=== PATIENT | male | born 1970 | race Hispanic/Latino ===

== ENCOUNTER 2024-11-25 10:37 | Emergency (ER) | payer OTHER ==
[~2024-11-25] VITALS: Ht 182.9 cm; Wt 113.4 kg
[2024-11-25 10:44] VITALS: TEMP 98.4
[2024-11-25] MEDS ORDERED: LIDOCAINE/PRILOCAINE 2.5-2.5% KIT TOP ONE (11:00)
[2024-11-25 11:23] LABS: BASOPHILS % 0.4 % (0.0-1.0); EOSINOPHILS % 1.1 % (0.0-6.0); LYMPHOCYTES % 10.8 % (18.0-39.1); MONOCYTES % 5.6 % (4.4-11.3); NEUTROPHILS % 81.6 % (38.7-80.0); RED CELL DISTRIBUTION WIDTH 12.0 % (11.7-14.4)
[2024-11-25 11:33] LABS: INR 0.85
[2024-11-25 11:42] LABS: EST GLOMERULAR FILTRATION RATE 112.0 ML/MIN (>=60)
[2024-11-25] MEDS ORDERED: LIDOCAINE/PRILOCAINE 2.5-2.5% KIT ONE (12:24)
[2024-11-25] MEDS ORDERED: LIDOCAINE 1% 10 ML MULTIDOSE VIAL IJ ONE (12:48)
[2024-11-25] MEDS ORDERED: LIDOCAINE HCL 1% LOCAL INJ 20 ML VIAL ONE (13:28)
[2024-11-25] MEDS ORDERED: BACTRIM DS TAB1 EACH PO (14:02)
[2024-11-25] MEDS ORDERED: HYDROCODON-ACE1 EA11 PO (14:02)
[2024-11-25] MEDS ORDERED: METFORMIN HCL1000 MG PO (14:02)
[2024-11-25 14:22] VITALS: PULSE 92; RESP 18; O2SAT 94
== END 2024-11-25 14:45 | disposition home or self-care (01) ==
LOC: ER 10:52
DX: N47.2 Paraphimosis (principal); F17.210 Nicotine dependence, cigarettes, uncomplicated
CPT/HCPCS: 36415; 80053; 85025; 85610; 85730; 99283; J2003